=== PATIENT | male | born 1950 | race Caucasian/White ===

== ENCOUNTER 2016-06-01 14:09 | Emergency (ER) | payer OTHER ==
[2016-06-01 15:11] VITALS: BP 145/84
--- NOTE | 2016-06-01 15:47 | UC ---
Throat Pain/Nasal Jl HPI - HPI Summary HPI Summary: FIVE DAYS OF WORSENING NASAL CONGESTION, SINUS PRESSURE, FEVER, COUGH. ALSO ONE WEEK AGO REMOVED TICK FROM LEFT ARM, SMALL RED AREA PERSISTS WHERE THE TICK HAD BEEN REMOVED. - History of Current Complaint Chief Complaint: UCGeneralIllness Stated Complaint: TICK,UPPER RESPIRATORY COMPLAINT Time Seen by Provider: 06/01/16 15:00 Hx Obtained From: Patient Onset/Duration: Sudden Onset, Lasting Weeks, Still Present Severity: Moderate Cough: Productive Associated Signs & Symptoms: Positive: Hoarseness, Sinus Discomfort, Nasal Discharge, Fever, Rash - Allergies/Home Medications Allergies/Adverse Reactions: Allergies Allergy/AdvReac Type Severity Reaction Status Date / Time No Known Allergies Allergy Verified 06/01/16 15:11 Home Medications: Home Medications Aspirin [Aspirin 81 MG TAB] 1 tab PO DAILY 06/01/16 [History Confirmed 06/01/16] Lisinopril [Zestril 2.5 MG-] 1 tab PO DAILY 06/01/16 [History Confirmed 06/01/16 ] Metoprolol Succinate [Toprol Xl] 50 mg PO DAILY 06/01/16 [History Confirmed ] Simvastatin [Zocor 40 MG (NF)] 1 tab PO DAILY 06/01/16 [History Confirmed ] PMH/Surg Hx/FS Hx/Imm Hx Previously Healthy: Yes Cardiovascular History Of: Reports: Cardiac Disorders - [place]-2006; Stent and pacemaker, Hypertension - Surgical History Surgical History: Yes Surgery Procedure, Year, and Place: Pacemaker placement-2006 - Family History Known Family History: Negative: Respiratory Disease, Blood Disorder - Social History Occupation: Retired Lives: With Family Alcohol Use: Occasionally Substance Use Type: None Smoking Status (MU): Never Smoked Tobacco - Immunization History Most Recent Influenza Vaccination: Not UTD Review of Systems Constitutional: Fever Skin: Rash Eyes: Negative ENT: Nasal Discharge Respiratory: Cough Cardiovascular: Negative Gastrointestinal: Negative Genitourinary: Negative Motor: Negative Neurovascular: Negative Musculoskeletal: Negative Neurological: Negative Psychological: Negative All Other Systems Reviewed And Are Negative: Yes Physical Exam Triage Information Reviewed: Yes Appearance: Well-Appearing, No Pain Distress, Well-Nourished Vital Signs: Initial Vital Signs Temp 99.0 F 06/01/16 15:04 Pulse 82 06/01/16 15:04 Resp 18 06/01/16 15:04 BP 145/84 04/22/17 15:04 Pulse Ox 94 06/01/16 15:04 Vital Signs Reviewed: Yes Eye Exam: Normal ENT: Positive: Hearing grossly normal, Pharynx normal, Nasal congestion, TM bulging, TM dull Dental Exam: Normal Neck exam: Normal Neck: Positive: Supple, Nontender, No Lymphadenopathy Respiratory: Positive: Chest non-tender, Lungs clear, Normal breath sounds, No respiratory distress, No accessory muscle use, Wheezing Cardiovascular Exam: Normal Cardiovascular: Positive: RRR, No Murmur, Pulses Normal, Brisk Capillary Refill Abdominal Exam: Normal Musculoskeletal Exam: Normal Musculoskeletal: Positive: Strength Intact, ROM Intact Neurological Exam: Normal Psychological Exam: Normal Psychological: Positive: Normal Response To Family Skin Exam: Normal Throat Pain/Nasal Course/Dx - Differential Dx/Diagnosis Differential Diagnosis/HQI/PQRI: Sinusitis, Tonsillitis, URI Provider Diagnoses: SINUSITIS. TICK BITE Discharge - Discharge Plan Condition: Stable Disposition: HOME Prescriptions: DOXYcycline CAP(*) [DOXYcycline 100MG CAP(*)] 100 mg PO BID #20 cap Patient Education Materials: Sinusitis (ED), Tick Bite (ED) Referrals: [facility] [place] [facility] REFERRAL [Outside]
== END 2016-06-01 15:53 | disposition home or self-care (01) ==
LOC: UCCORT 14:09
DX: J32.9 Chronic sinusitis, unspecified (principal); S40.862A Insect bite (nonvenomous) of left upper arm, initial encounter; W57.XXXA Bitten or stung by nonvenomous insect and other nonvenomous arthropods, initial encounter; Y93.9 Activity, unspecified; Y92.9 Unspecified place or not applicable; I25.2 Old myocardial infarction; Z95.5 Presence of coronary angioplasty implant and graft; Z95.0 Presence of cardiac pacemaker
CPT/HCPCS: 99202; G0463

== ENCOUNTER 2017-10-07 10:40 | Emergency (ER) | payer BC, OTHER ==
[2017-10-07 11:07] VITALS: BP 137/39
--- NOTE | 2017-10-07 11:17 | UC ---
Skin Complaint HPI - HPI Summary HPI Summary: rash right upper thigh x 2 days ? tick bite, no fever, no chills, no joint pain - History of Current Complaint Chief Complaint: UCSkin Time Seen by Provider: 10/07/17 10:54 Stated Complaint: TICK BITE Hx Obtained From: Patient Onset/Duration: Gradual Onset, Lasting Days - 2, Still Present Timing: Constant Onset Severity: Mild Current Severity: Mild Pain Intensity: 0 Location: Other - right upper thigh Character: Redness Aggravating Factor(s): Nothing Alleviating Factor(s): Nothing Associated Signs & Symptoms: Positive: Rash. Negative: Nausea, Vomiting, Numbness, Fever, Chills Related History: Insect Bite/Sting - Allergy/Home Medications Allergies/Adverse Reactions: Allergies Allergy/AdvReac Type Severity Reaction Status Date / Time No Known Allergies Allergy Verified 06/01/16 15:11 Home Medications: Home Medications Atorvastatin* [Lipitor 10 MG*] 80 mg PO DAILY 10/07/17 [History Confirmed ] Ezetimibe 10 mg PO DAILY 10/07/17 [History Confirmed 10/07/17] Review of Systems Constitutional: Negative Skin: Rash Eyes: Negative ENT: Negative Respiratory: Negative Cardiovascular: Negative Gastrointestinal: Negative Is Patient Immunocompromised?: No All Other Systems Reviewed And Are Negative: Yes PMH/Surg Hx/FS Hx/Imm Hx Cardiovascular History: Hypertension - Surgical History Surgical History: Yes Surgery Procedure, Year, and Place: [place] Pacemaker placement-2006 - Family History Known Family History: Negative: Respiratory Disease, Blood Disorder - Social History Alcohol Use: Occasionally Substance Use Type: None Smoking Status (MU): Never Smoked Tobacco - Immunization History Most Recent Influenza Vaccination: Not UTD Physical Exam Triage Information Reviewed: Yes Appearance: Well-Appearing, No Pain Distress, Well-Nourished Vital Signs: Initial Vital Signs Temp 98.0 F 10/07/17 10:58 Pulse 60 10/07/17 10:58 Resp 15 10/07/17 10:58 BP 137/39 10/07/17 10:58 Pulse Ox 100 10/07/17 10:58 Vital Signs Reviewed: Yes Eye Exam: Normal Eyes: Positive: Conjunctiva Clear ENT: Positive: Normal ENT inspection, Hearing grossly normal, Pharynx normal, Pharyngeal erythema Neck: Positive: Supple, Nontender, No Lymphadenopathy Respiratory: Positive: Chest non-tender, Lungs clear, Normal breath sounds Cardiovascular: Positive: RRR, No Murmur, Pulses Normal Skin: Positive: rashes - macular rash right upper thigh Course/Dx - Diagnoses Provider Diagnoses: insect bite right thigh Discharge - Sign-Out/Discharge Documenting (check all that apply): Patient Departure All imaging exams completed and their final reports reviewed: No Studies - Discharge Plan Condition: Stable Disposition: HOME Prescriptions: DOXYcycline CAP(*) [DOXYcycline 100MG CAP(*)] 200 mg PO ONCE #2 cap Patient Education Materials: Tick Bite (ED) Referrals: Que Borrego MD [Primary Care Provider] - If Needed - Billing Disposition and Condition Condition: STABLE Disposition: Home
== END 2017-10-07 11:20 | disposition home or self-care (01) ==
LOC: UCCORT 10:40
DX: S70.361A Insect bite (nonvenomous), right thigh, initial encounter (principal); I10 Essential (primary) hypertension; W57.XXXA Bitten or stung by nonvenomous insect and other nonvenomous arthropods, initial encounter; Y92.9 Unspecified place or not applicable
CPT/HCPCS: 99212; G0463